=== PATIENT | female | born 1935 | race Caucasian/White ===

== ENCOUNTER → 2023-05-14 07:02 | Outpatient (REF) | payer MEDICARE, OTHER, SELFPAY ==
[2023-05-14 08:03] LABS: % Basophils 0.4 % (0-2); % Eosinophils 3.3 % (0-6); % Immature Granulocytes 0.4 % (0-0.5); % Lymphocytes 29.7 % (20.5-51.1); % Monocytes 6.5 % (1.7-9.3); % Neutrophils 59.7 % (42.2-75.2); Absolute Eosinophils 0.2 10^3/uL (0-0.7); Absolute Lymphocytes 1.5 10^3/uL (1.2-3.4); Absolute Monocytes 0.3 10^3/uL (0.1-0.6); Hematocrit 39.8 % (37.0-47.0); Hemoglobin 12.9 g/dL (12.0-16.0); Mean Corp Hgb Conc. 32.4 g/dL (33.0-37.0); Mean Corpuscular Hgb 29.3 pg (27.0-31.0); Mean Corpuscular Volume 90.5 fL (81.0-99.0); Mean Platelet Volume 10.8 fL (7.4-10.4); Nucleated Red Blood Cells % 0 %; Platelet Count 265 10^3/uL (130-400); Red Cell Dist. Width 13.2 % (11.5-14.5); White Blood Cell Count 5.1 10^3/uL (4.8-10.8)
[2023-05-14 08:44] LABS: Glycohemoglobin (HgbA1c) 5.7 % (4.0-5.6)
[2023-05-14 10:09] LABS: ALT (SGPT) 26 U/L (0-35); AST (SGOT) 38 U/L (14-36); Albumin 4.4 g/dl (3.5-5.0); Alkaline Phosphatase 90 U/L (38-126); Blood Urea Nitrogen 17 mg/dl (7-17); Calcium 9.6 mg/dl (8.4-10.2); Carbon Dioxide 27 mmol/L (22-30); Chloride 105 mmol/L (98-107); Glucose 94 mg/dl (70-99); HDL Cholesterol 63 mg/dl; LDL Cholesterol, Calculated 102 mg/dl; Potassium 4.2 mmol/L (3.5-5.1); Sodium 139 mmol/L (135-145); Total Bilirubin 0.6 mg/dl (0.2-1.3); Total Cholesterol 182 mg/dl (50-199); Total Protein 7.8 g/dl (6.3-8.2); Triglyceride 86 mg/dl (10-149); Very Low Density Lipoprotein 17 mg/dl (0-30); eGFR > 60.00
[2023-05-14 10:40] LABS: TSH Reflex To Free T4 6.09 uIU/ml (0.47-4.68)
[2023-05-14 11:10] LABS: Free T4 1.17 ng/dl (0.78-2.19)
== END ==
LOC: REG 07:02
PROVIDERS: ATTENDING PHYSICIAN Family Medicine; FAMILY PHYSICIAN Internal Medicine Cardiovascular Disease
DX: M85.852 Other specified disorders of bone density and structure, left thigh (principal); I10 Essential (primary) hypertension; E04.1 Nontoxic single thyroid nodule; E03.9 Hypothyroidism, unspecified; R73.01 Impaired fasting glucose; E78.00 Pure hypercholesterolemia, unspecified; Z00.00 Encounter for general adult medical examination without abnormal findings; R94.5 Abnormal results of liver function studies; R53.83 Other fatigue; Z79.899 Other long term (current) drug therapy
CPT/HCPCS: 36415; 80053; 80061; 83036; 84439; 84443; 85025

== ENCOUNTER → 2023-05-26 10:11 | Outpatient (REF) | payer MEDICARE, OTHER, SELFPAY | LOC: RAD 10:11 | PROVIDERS: ATTENDING PHYSICIAN Internal Medicine Critical Care Medicine; FAMILY PHYSICIAN Family Medicine; REFERRING PHYSICIAN Internal Medicine Cardiovascular Disease | DX: R06.00 Dyspnea, unspecified (principal) | CPT/HCPCS: 71046 ==

== ENCOUNTER 2023-10-29 09:20 | Emergency (ER) | payer MEDICARE, OTHER, SELFPAY ==
[2023-10-29 09:33] VITALS: BP 160/72
--- NOTE | 2023-10-29 10:28 | ED.GENMED ---
History of Present Illness
General
Chief Complaint: Breathing Problem
Source: patient and spouse
Exam Limitations: none
Time Seen by Provider: 10/29/23 10:00
Nursing documentation reviewed up to this point in time: agreed with
History of Present Illness
History of Present Illness:
87-year-old female past medical history of leaky heart valve, hypertension, hypothyroidism, previous breast cancer presenting to the emergency department today with multiple concerns. She claims she has had some degree of shortness of breath that
seems to be worse with exertion over the past few months denies similar symptoms in the past. Does follow-up with cardiology. Additionally over the past few weeks she has had some intermittent episodes where she feels some tingling or decrease
sensation to left side of her face last for a few minutes at a time and goes away on its own denies any specific palliation or provocation. Sometimes she will have pain to the face. She initially thought this was from her teeth but the dentist did
not evaluation claims that her teeth look fine. She also some concerns of some burning sensation to her stomach intermittently over the past few months as well. Denies change in bowel movements nausea vomiting fevers no chest pain at this time.
Past History
Past History
ED Past Medical History: Cancer (Breast), Hypothyroidism and Other (Celiac disease, breast cancer)
ED Past Surgical History: Cardiac (leaky heart valve) and Other (Lumpectomy of the left breast, growth removed from abdomen, left eye surgery �2, cataract surgery of the right eye)
Social History
Tobacco: Non-smoker
Personal:
Living: with family
Employment: Retired
Review of Systems
Review of Systems
Allergies reviewed?: Yes
All Other Systems: ROS reviewed and negative except as documented in HPI and ROS
Phy Exam
Physical Exam
Physical Exam:
GENERAL: Alert , in no apparent distress
EYE: pupils equal and reactive
NECK: Supple, no significant adenopathy.
ENT: o/p clr, mmm.
CARDIAC: Regular rate and rhythm .
LUNGS: Clear breath sounds bilaterally, no acute respiratory distress, no wheezes/rales/rhonchi
ABDOMEN: Soft, without focal tenderness, no r/g, no cvat
NEUROLOGICAL: Alert and oriented, no focal neuro deficits
SKIN: Warm and dry, skin intact.
MUSCULOSKELETAL: No edema, well perfused.
PSYCH: Normal and appropriate interaction.
Scores
Heart Failure Risk
Heart Failure Risk Score: Not Applicable
Course
Orders/Labs/Results
Orders:
Orders
10/29/23 09:21
Electrocardiogram (*1) Urgent
Reason for Study: Shortness of Breath
EKG- Treatment ONCE
10/29/23 10:22
CR Chest - 2 Views Urgent
Comment:
Reason For Exam: sob
10/29/23 10:26
Complete Blood Count/With Diff Urgent
Comprehensive Metabolic Panel Urgent
D-Dimer Urgent
Magnesium Urgent
NT-proBNP Urgent
TSH Urgent
Troponin I Urgent
10/29/23 12:00
CT Head W/o Iv Contrast Urgent
Comment:
Reason For Exam: left facial tingling
10/29/23 10:26
10/29/23 10:26
Vital Signs
Initial and Last Documented VS:
Initial Vital Signs
Temp Pulse Resp BP Pulse Ox
98.0 F 88 16 160/72 98
10/29/23 09:33 10/29/23 09:33 10/29/23 09:33 10/29/23 09:33 10/29/23 09:33
Last Documented Vital Signs
Temp Pulse Resp BP Pulse Ox
98.0 F 69 23 137/118 96
10/29/23 09:33 10/29/23 11:15 10/29/23 11:15 10/29/23 11:00 10/29/23 11:15
MDM/Problems Addressed
MDM/Problems Addressed:
87-year-old female presenting to the emergency department with multiple concerns. She has had some degree of shortness of breath over the past few months made worse with exertion none currently. Has had an episode or 2 of chest heaviness but none
recently over the past few days. She is also noted some discomfort into her face and feels that there could be some paresthesia to the left side of her face that occurs for a few minutes at a time intermittently over the past few weeks as well none
currently. Here initial blood pressure elevated but otherwise vital signs are normal. Patient no distress normal physical examination labs were obtained without any acute abnormalities troponin negative ACS seems very unlikely BNP negative
likelihood of pulmonary edema or CHF seems to be unlikely at this time. No signs of significant anemia. CT head normal chest x-ray normal patient very well-appearing able to walk in the room with pulse ox 98% no signs of immediate life threats
causing symptoms at this time advised her close outpatient follow-up. Return precautions given.
*Critical Care Note
Total Time (30-74mins, 75-104mins- exclusive of procedures): Not Applicable
ED Attending Note
-
Portions of this chart may have been created with voice recognition software.� Occasional wrong word or��sound alike� substitutions may have occurred due to the inherent limitations of voice recognition software.
Discharge Plan
Departure
Patient Disposition: Home (Routine Discharge)
Date of Disposition: 10/29/23
Time of Disposition: 14:00
Patient with high blood pressure during this ER visit?: No
Condition: Good
Covid-19: Not Applicable
Discharge Problem:
Chest pain, Shortness of breath
Instructions: Shortness of Breath (Dyspnea) (DC), *DCA Heart Failure Instructions
Prescriptions:
No Action
amlodipine 2.5 mg Tablet
2.5 mg PO QPM
flaxseed oil 1,000 mg Capsule
1,000 mg PO DAILY
Cholest Off 450 mg Tablet
450 mg PO DAILY@12
calcium carbonate-vitamin D3 [Calcium + D] 600 mg-5 mcg (200 unit) Tablet
1 tab PO Q48H
garlic 1,250 mg Tablet
1,250 mg PO DAILY
cholecalciferol (vitamin D3) [Vitamin D3] 50 mcg (2,000 unit) Tablet
50 mcg PO Q48H
Referrals:
Karl Coleman Jr., DO [Family Provider] -
Jonny Powers MD [Active] - Follow up in 10 days
Activity Restrictions/Additional Instructions:
You came to the emergency department today with concerns of multiple symptoms. Here your reassuring assessment. Please follow closely with cardiology and neurology. Return to the emergency department any worsening, new or concerning symptoms.
Interventions
Interventions:
*Risk Screen - Suicide Last Done: 10/29/23 10:30
*General Assessment Last Done: 10/29/23 10:30
*Neglect/Abuse Screening Last Done: 10/29/23 10:30
ED- Cardiac Assessment Last Done: 10/29/23 10:30
ED- Pulmonary Assessment Last Done: 10/29/23 10:30
Discharge Date and Time
Print Language: [id number]
[2023-10-29 10:44] LABS: % Basophils 0.2 % (0-2); % Eosinophils 1.7 % (0-6); % Immature Granulocytes 0.3 % (0-0.5); % Lymphocytes 20.8 % (20.5-51.1); % Monocytes 6.6 % (1.7-9.3); % Neutrophils 70.4 % (42.2-75.2); Absolute Eosinophils 0.1 10^3/uL (0-0.7); Absolute Lymphocytes 1.3 10^3/uL (1.2-3.4); Absolute Monocytes 0.4 10^3/uL (0.1-0.6); Absolute Neutrophils 4.5 10^3/uL (1.4-6.5); Hematocrit 38.2 % (37.0-47.0); Hemoglobin 12.7 g/dL (12.0-16.0); Mean Corp Hgb Conc. 33.2 g/dL (33.0-37.0); Mean Corpuscular Hgb 29.5 pg (27.0-31.0); Mean Corpuscular Volume 88.6 fL (81.0-99.0); Mean Platelet Volume 10.4 fL (7.4-10.4); Nucleated Red Blood Cells % 0 %; Platelet Count 277 10^3/uL (130-400); Red Blood Cell Count 4.31 10^6/uL (4.20-5.40); Red Cell Dist. Width 12.9 % (11.5-14.5); White Blood Cell Count 6.4 10^3/uL (4.8-10.8)
[2023-10-29 10:52] VITALS: BP 147/62
[2023-10-29 10:52] LABS: D-Dimer 0.47 ug/mlFEU (0.00-0.50)
[2023-10-29 10:58] LABS: ALT (SGPT) 19 U/L (0-35); AST (SGOT) 33 U/L (14-36); Albumin 4.6 g/dl (3.5-5.0); Alkaline Phosphatase 95 U/L (38-126); Blood Urea Nitrogen 13 mg/dl (7-17); Carbon Dioxide 29 mmol/L (22-30); Chloride 101 mmol/L (98-107); Glucose 90 mg/dl (70-99); Potassium 4.3 mmol/L (3.5-5.1); Sodium 142 mmol/L (135-145); Total Bilirubin 0.6 mg/dl (0.2-1.3); Total Protein 7.7 g/dl (6.3-8.2); eGFR > 60.00
[2023-10-29 11:00] VITALS: BP 137/118
[2023-10-29 11:06] LABS: NT-proBNP 515 pg/ml; Troponin I < 0.012 ng/ml
[2023-10-29 11:44] LABS: TSH 4.14 uIU/ml (0.47-4.68)
[2023-10-29 14:26] VITALS: BP 129/85
== END 2023-10-29 14:27 | disposition home or self-care (01) ==
LOC: EMR 09:20
PROVIDERS: Physician Assistant; EMERGENCY PHYSICIAN Student in an Organized Health Care Education/Training Program; FAMILY PHYSICIAN Family Medicine
DX: R07.89 Other chest pain (principal); R06.02 Shortness of breath; I10 Essential (primary) hypertension; E03.9 Hypothyroidism, unspecified
CPT/HCPCS: 99285; 70450; 71046; 80053; 83735; 83880; 84443; 84484; 85025; 85379; 93005

== ENCOUNTER → 2023-12-02 07:18 | Outpatient (REF) | payer MEDICARE, OTHER, SELFPAY ==
[2023-12-02 08:44] LABS: HDL Cholesterol 57 mg/dl; LDL Cholesterol, Calculated 129 mg/dl; Total Cholesterol 206 mg/dl (50-199); Triglyceride 101 mg/dl (10-149); Very Low Density Lipoprotein 20 mg/dl (0-30)
== END ==
LOC: REG 07:18
PROVIDERS: ATTENDING PHYSICIAN Family Medicine
DX: E78.00 Pure hypercholesterolemia, unspecified (principal)
CPT/HCPCS: 36415; 80061

== ENCOUNTER → 2024-03-11 07:43 | Outpatient (REF) | payer MEDICARE, OTHER, SELFPAY ==
[2024-03-11 08:30] LABS: % Basophils 0.2 % (0-2); % Eosinophils 2.3 % (0-6); % Immature Granulocytes 0.4 % (0-0.5); % Neutrophils 69.1 % (42.2-75.2); Absolute Eosinophils 0.1 10^3/uL (0-0.7); Absolute Lymphocytes 1.2 10^3/uL (1.2-3.4); Absolute Monocytes 0.3 10^3/uL (0.1-0.6); Absolute Neutrophils 3.8 10^3/uL (1.4-6.5); Hematocrit 38.2 % (37.0-47.0); Hemoglobin 12.7 g/dL (12.0-16.0); Mean Corp Hgb Conc. 33.2 g/dL (33.0-37.0); Mean Corpuscular Hgb 29.5 pg (27.0-31.0); Mean Corpuscular Volume 88.6 fL (81.0-99.0); Mean Platelet Volume 10.7 fL (7.4-10.4); Nucleated Red Blood Cells % 0 %; Platelet Count 248 10^3/uL (130-400); Red Blood Cell Count 4.31 10^6/uL (4.20-5.40); White Blood Cell Count 5.5 10^3/uL (4.8-10.8)
[2024-03-11 08:54] LABS: ALT (SGPT) 22 U/L (0-35); AST (SGOT) 35 U/L (14-36); Albumin 4.5 g/dl (3.5-5.0); Alkaline Phosphatase 81 U/L (38-126); Blood Urea Nitrogen 20 mg/dl (7-17); Calcium 9.3 mg/dl (8.4-10.2); Carbon Dioxide 28 mmol/L (22-30); Chloride 102 mmol/L (98-107); Glucose 95 mg/dl (70-99); Potassium 4.3 mmol/L (3.5-5.1); Sodium 139 mmol/L (135-145); Total Bilirubin 0.5 mg/dl (0.2-1.3); Total Protein 7.9 g/dl (6.3-8.2); eGFR > 60.00
[2024-03-11 09:24] LABS: TSH Reflex To Free T4 5.11 uIU/ml (0.47-4.68)
[2024-03-11 09:53] LABS: Free T4 1.18 ng/dl (0.78-2.19)
== END ==
LOC: REG 07:43
PROVIDERS: ATTENDING PHYSICIAN Family Medicine
DX: R06.00 Dyspnea, unspecified (principal); R53.83 Other fatigue; R53.1 Weakness
CPT/HCPCS: 36415; 80053; 84439; 84443; 85025

== ENCOUNTER → 2024-04-06 13:51 | Outpatient (REF) | payer MEDICARE, OTHER, SELFPAY | LOC: RCS 13:51 | PROVIDERS: ATTENDING PHYSICIAN Internal Medicine Cardiovascular Disease; FAMILY PHYSICIAN Family Medicine | DX: R06.02 Shortness of breath (principal); I34.0 Nonrheumatic mitral (valve) insufficiency; I35.1 Nonrheumatic aortic (valve) insufficiency | CPT/HCPCS: 93306 ==

== ENCOUNTER → 2024-07-14 07:12 | Outpatient (REF) | payer MEDICARE, OTHER, SELFPAY ==
[2024-07-14 07:33] LABS: % Basophils 0.4 % (0-2); % Eosinophils 2.9 % (0-6); % Immature Granulocytes 0.2 % (0-0.5); % Lymphocytes 25.2 % (20.5-51.1); % Monocytes 7.6 % (1.7-9.3); % Neutrophils 63.7 % (42.2-75.2); Absolute Eosinophils 0.2 10^3/uL (0-0.7); Absolute Lymphocytes 1.3 10^3/uL (1.2-3.4); Absolute Monocytes 0.4 10^3/uL (0.1-0.6); Absolute Neutrophils 3.3 10^3/uL (1.4-6.5); Hematocrit 38.5 % (37.0-47.0); Hemoglobin 12.6 g/dL (12.0-16.0); Mean Corp Hgb Conc. 32.7 g/dL (33.0-37.0); Mean Corpuscular Hgb 29.4 pg (27.0-31.0); Mean Corpuscular Volume 89.7 fL (81.0-99.0); Mean Platelet Volume 10.4 fL (7.4-10.4); Nucleated Red Blood Cells % 0 %; Platelet Count 262 10^3/uL (130-400); Red Blood Cell Count 4.29 10^6/uL (4.20-5.40); Red Cell Dist. Width 13.2 % (11.5-14.5); White Blood Cell Count 5.1 10^3/uL (4.8-10.8)
[2024-07-14 08:09] LABS: ALT (SGPT) 21 U/L (0-35); AST (SGOT) 30 U/L (14-36); Albumin 4.4 g/dl (3.5-5.0); Alkaline Phosphatase 72 U/L (38-126); Blood Urea Nitrogen 14 mg/dl (7-17); Calcium 9.6 mg/dl (8.4-10.2); Carbon Dioxide 28 mmol/L (22-30); Chloride 107 mmol/L (98-107); Glucose 105 mg/dl (70-99); HDL Cholesterol 53 mg/dl; LDL Cholesterol, Calculated 104 mg/dl; Potassium 4.3 mmol/L (3.5-5.1); Sodium 143 mmol/L (135-145); Total Bilirubin 0.6 mg/dl (0.2-1.3); Total Cholesterol 174 mg/dl (50-199); Total Protein 7.8 g/dl (6.3-8.2); Triglyceride 87 mg/dl (10-149); Very Low Density Lipoprotein 17 mg/dl (0-30); eGFR > 60.00
[2024-07-14 09:09] LABS: Glycohemoglobin (HgbA1c) 5.5 % (4.0-5.6)
== END ==
LOC: REG 07:12
PROVIDERS: ATTENDING PHYSICIAN Family Medicine
DX: R06.00 Dyspnea, unspecified (principal); R53.83 Other fatigue; R53.1 Weakness; R73.01 Impaired fasting glucose; E78.00 Pure hypercholesterolemia, unspecified
CPT/HCPCS: 36415; 80053; 80061; 83036; 85025